=== PATIENT | male | born 1980 | race Caucasian/White ===

== ENCOUNTER 2018-08-14 11:25 | Emergency (ER) | payer MEDICAID ==
[2018-08-14 12:01] VITALS: BP 136/94; PULSE 83
--- NOTE | 2018-08-15 07:40 | EDM.PDOC ---
ED HPI GENERAL MEDICAL PROBLEM - General Chief Complaint: Back Pain or Injury Stated Complaint: LEFT LEG PAIN Time Seen by Provider: 08/14/18 11:35 Source of Information: Reports: Patient History Limitations: Reports: No Limitations - History of Present Illness INITIAL COMMENTS - FREE TEXT/NARRATIVE: Pt. presents to ER with acute on chronic low back pain with radiation into L leg. Pt. states that he had been seen in clinic recently for this and states that it is worse today after lifting. He has a history of spinal stenosis with previous surgery. He has seen pain management. Denies any saddle anesthesia. Denies incontinence. Denies other trauma other than lifting (no falls or accidents). Onset Date: 08/14/18 Location: Reports: Back, Lower Extremity, Left Quality: Reports: Ache Severity: Severe Lower Back Pain Score (Numeric/FACES): 9 - Related Data Allergies Allergy/AdvReac Type Severity Reaction Status Date / Time Penicillins Allergy Rash Verified 08/14/18 11:39 Home Meds: Home Meds Gabapentin [Neurontin] 600 mg PO BID 07/14/15 [History] Cyclobenzaprine [Flexeril] 10 mg TID PRN 08/14/18 [History] methylPREDNISolone [Medrol] 4 mg ASDIRECTED 08/14/18 [History] Past Medical History Musculoskeletal History: Reports: Back Pain, Chronic - Past Surgical History HEENT Surgical History: Reports: Oral Surgery GI Surgical History: Reports: Appendectomy Musculoskeletal Surgical History: Reports: Other (See Below) Other Musculoskeletal Surgeries/Procedures:: artificial disc in lumbar Social & Family History - Tobacco Use Smoking Status *Q: Current Every Day Smoker Years of Tobacco use: 20 Packs/Tins Daily: 0.5 - Alcohol Use Days Per Week of Alcohol Use: 3 Number of Drinks Per Day: 8 Total Drinks Per Week: 24 - Recreational Drug Use Recreational Drug Use: No ED ROS GENERAL - Review of Systems Review Of Systems: See Below Musculoskeletal: Reports: Back Pain, Muscle Stiffness Skin: Reports: No Symptoms Neurological: Reports: Paresthesia (L lower extremity) ED EXAM, GENERAL - Physical Exam Exam: See Below Back Exam: Normal Inspection, Decreased Range of Motion, Muscle Spasm, Paraspinal Tenderness Extremities: Normal Inspection, Normal Range of Motion, Non-Tender, No Pedal Edema, Normal Capillary Refill Neurological: Alert, Oriented, CN II-XII Intact, Normal Cognition, Normal Gait, Normal Reflexes, No Motor/Sensory Deficits, Other (patellar reflexes 2+) Course - Vital Signs Last Recorded V/S: Last Vital Signs Temp 37.2 C 08/14/18 11:25 Pulse 83 08/14/18 11:25 Resp 16 08/14/18 11:25 BP 136/94 H 08/14/18 11:25 Pulse Ox 98 08/14/18 11:25 Departure - Departure Time of Disposition: 12:30 Disposition: Home, Self-Care 01 Condition: Good Clinical Impression: Lumbar back pain with radiculopathy affecting left lower extremity - Discharge Information Instructions: Acute Back Pain, Adult Referrals: Heidi Aguilar ROBOTIC TECHNICIAN [Primary Care Provider] - Forms: ED Department Discharge Additional Instructions: Continue with the gabapentin, flexeril and steroids prescribed yesterday. Start Mentone 10/325mg 1 every 6 hours as needed for pain. You will be contacted later today regarding an MRI and physical therapy appointment. Off work today and tomorrow if needed due to injury. - Assessment/Plan Plan: Continue with the gabapentin, flexeril and steroids prescribed yesterday. Start Mentone 10/325mg 1 every 6 hours as needed for pain. You will be contacted later today regarding an MRI and physical therapy appointment. Off work today and tomorrow if needed due to injury.
== END 2018-08-14 12:05 | disposition home or self-care (01) ==
LOC: VM.ED 11:25
DX: M54.16 Radiculopathy, lumbar region (principal); F17.210 Nicotine dependence, cigarettes, uncomplicated; Z88.0 Allergy status to penicillin; Z79.899 Other long term (current) drug therapy
CPT/HCPCS: 99283